=== PATIENT | female | born 1945 | race Caucasian/White ===

== ENCOUNTER 2018-11-10 08:48 | Emergency (ER) | payer MEDICARE, OTHER ==
[~2018-11-10] VITALS: Ht 152.4 cm; Wt 80.0 kg
[~2018-11-10 08:48] MED LIST: ANTIVERT PO; LISINOPRIL10 MG PO; MEDDOSEPAK PO; ONDANSETRON4 MG PO
[2018-11-10] MEDS ORDERED: LISINOPRIL40 MG PO (09:54)
[2018-11-10] MEDS ORDERED: CARTIA XT120 MG PO (09:55)
[2018-11-10] MEDS ORDERED: PERMETHRIN5 % EX (10:30)
[2018-11-10] MEDS ORDERED: ALAVERT10 M1 PO (10:30)
[2018-11-10 10:44] VITALS: BP 144/79
== END 2018-11-10 10:44 | disposition home or self-care (01) ==
LOC: ED 08:48
DX: L29.9 Pruritus, unspecified (principal); R21 Rash and other nonspecific skin eruption

== ENCOUNTER 2019-09-24 14:06 | Observation (INO) | payer MEDICARE, OTHER ==
[~2019-09-24] VITALS: Ht 152.4 cm; Wt 65.8 kg
[~2019-09-24 14:06] MED LIST changes: +ALAVERT10 M1 PO; +CARTIA XT120 MG PO; +LISINOPRIL40 MG PO; +PERMETHRIN5 % EX
--- NOTE | 2019-09-24 14:06 | NUR ---
PT TO ROOM VIA WHEELCHAIR IN STABLE CONDITION FOR BEDSIDE TRIAGE.
[2019-09-24] MEDS ORDERED: DILTIAZEM30 MG PO (14:28)
[2019-09-24 14:38] LABS: HEMATOCRIT 39.3 % (37.0-47.0); HEMOGLOBIN 12.4 g/dl (12.0-16.0); IMMATURE GRANULOCYTES 0.6 % (0.0-5.0); MEAN CELL VOLUME 98.7 fL CALC (80.0-100.0); MEAN CORPUSCULAR HGB 31.2 pG CALC (26.0-32.0); MEAN CORPUSCULAR HGB CONC 31.6 g/L CALC (32.0-36.0); NEUT# 9.57 thou/uL (2.00-7.15); RED BLOOD COUNT 3.98 mill/uL (4.20-5.60)
[2019-09-24 14:54] LABS: BUN 24 mg/dL (8-23); BUN/CREATININE RATIO 31 (12-20 (CALC)); CHLORIDE 101 mmol/l (95-108); CREATININE 0.8 mg/dL (0.5-1.0); GFR > 60 ML/MIN (>=60 (CALC)); GFR FOR AFR.AMER. > 60 ML/MIN (>=60 (CALC)); POTASSIUM 4.9 mmol/l (3.5-5.1); SODIUM 135 mmol/l (137-146)
[2019-09-24 14:55] LABS: ANION GAP 14 (6-22 (CALC)); CARBON DIOXIDE 25 mmol/l (22-30)
--- NOTE | 2019-09-24 15:00 | NUR ---
PT PRESENTS WITH CHEST PAIN OF 0/10. PT STATES HAVING CHEST PAIN BEFORE COMING INTO ER PAIN OF 9/10. PT STATES IT IS LOCATED IN THE LEFT SIDE OF CHEST AND RADIATES TO LEFT SHOULDER. PT ALSO HAS EPIGASTRIC TENDERNESS. THESE SYMPTOMS STARTED FOUR DAYS PRIOR. CAP REFILL BRISK, PULSES EQUAL, SKIN PINK. WILL CONTINUE TO MONITOR. LUNGS CLEAR BI
--- NOTE | 2019-09-24 16:07 | NUR ---
PT RESTING IN STRETCHER ANSWERING QUESTIONS APPROPRIATLY. PT STATES CONTINUED 0/10 PAIN. WILL CONTINUE TO MONITOR ASPIRIN ADMINISTERED.
--- NOTE | 2019-09-24 16:35 | NUR ---
ELIESER BARAKAT TO [facility]
--- NOTE | 2019-09-24 16:40 | NUR ---
PT TRANSPORTED TO MED SURG VIA STRETCHER. CARE ASSUMED TO LIN[facility] PT IN NO DISTRESS AND IN STABLE CONDITION
--- NOTE | 2019-09-24 16:45 | NUR ---
PT ARRIVED FROM ER VIA STRETCHER ACCOMPANIED BY STAFF. IV SITE IS FREE FROM REDNESS OR EDEMA. TELE MONITOR IN PLACE.
[2019-09-24 16:57] VITALS: BP 150/72
--- NOTE | 2019-09-24 17:00 | NUR ---
PT ASSESSMENT IS COMPLETED: PT ABLE TO AMBULATE TO THE BED FROM THE STRETCHER IV SITE IS FREE FROM REDNESS OR EDEMA TELE MONITOR IN PLACE. HR IS REG,PULSES ARE STRONG X4, ABD IS SOFT WITH ACTIVE BS.BREATH SOUNDS ARE CLEAR,BILATERALLY. PT HAS TO SELF CATH 3 TO 4 TIMES A DAY,DUE TO INABLILTY TO EMPTY HER BLADDER.
[2019-09-24 18:20] VITALS: BP 131/68
--- NOTE | 2019-09-24 19:40 | NUR ---
REPORT REC. PT SITTING IN BED. NO DISTRESS NOTED AT THIS TIME.
--- NOTE | 2019-09-24 20:46 | NUR ---
PT SITTING IN BED WATCHING TV. A&O X3. NO DISTRESS NOTED. PT STATES THAT SHE CURRENTLY IS NOT EXPERIENCING ANY CHEST PAIN. PT VOICED CONCERN IN REGARDS TO HER MEDICATION THAT SHE TAKES AT HOME, EXPLAINED TO THE PT THAT IT WOULD BE GIVEN TO HER IN THE MORNING. PT VERBALIZED UNDERSTANDING. NO OTHER NEEDS AT THIS TIME. DISCUSSED POC. ASSESSMENT COMPLETED. CALL LIGHT IN REACH CONTINUE TO MONITOR.
--- NOTE | 2019-09-24 21:20 | NUR ---
PT VERBALIZED NEED OF SLEEPING PILL TO HELP HER SLEEP. SONATA GIVEN TO PT. CONTINUE TO MONITOR.
--- NOTE | 2019-09-25 | NUR ---
PT SLEEPING IN BED. NO DISTRESS NOTED. BREATHING EVEN AND UNLABORED. CONTINUE TO MONITOR.
[2019-09-25 03:45] VITALS: BP 148/86
[2019-09-25 06:24] LABS: CHOLESTEROL HDL RATIO 2.8 (<4.4 (CALC)); MAGNESIUM 1.9 mg/dL (1.6-2.3)
[2019-09-25 07:34] LABS: URINE BILIRUBIN - DIPSTICK NEGATIVE (NEGATIVE); URINE BLOOD DIPSTICK SMALL (NEGATIVE); URINE CLARITY CLOUDY; URINE COLOR YELLOW; URINE GLUCOSE - DIPSTICK NEGATIVE (NEGATIVE); URINE KETONE NEGATIVE (NEGATIVE); URINE LEUK ESTERASE NEGATIVE (Negative); URINE NITRITE - DIPSTICK NEGATIVE (Negative); URINE PROTEIN - DIPSTICK NEGATIVE (NEG-TRACE); URINE UROBILINOGEN - DIPSTICK 0.2 E.U./dL (0.2)
[2019-09-25 07:48] LABS: URINE BACTERIA MANY hpf
[2019-09-25 08:15] VITALS: BP 140/81
--- NOTE | 2019-09-25 08:15 | NUR ---
ASSESSMENT IS COMPLETED: IV SITE IS FREE FROM REDNESS OR EDEMA. HR IS REG,PULSES ARE STRONG X4, ABD IS SOFT WITH ACTIVE BS. BREATH SOUNDS ARE CLEAR, BILATERALLY, CONTINUE TO OSBERVE AND MONITOR. TELE MONITOR IN PLACE. CONTINUE TO OBSERVE AND MONITOR.
[2019-09-25] MEDS ORDERED: PROTONIX40 M2 PO (10:59)
[2019-09-25 11:03] VITALS: BP 139/73
[2019-09-25] MEDS ORDERED: BACTRIM DS1 TAB PO (11:06)
--- NOTE | 2019-09-25 12:20 | NUR ---
PT IS RELAXING IN BED FAMILY IN THE ROOM. IV SITE IS FREE FROM REDNESS OR EDEMA.
--- NOTE | 2019-09-25 13:35 | NUR ---
DISCHARGE INSTRUCTIONS GIVEN AND VERBALIZED UNDERSTANDING. IV SITE DISCONTINUED CATHETER INTACT. FAMILY IN THE ROOM. Discharge instructions given. Patient verbalizes understanding of same. Discharged in stable condition via AMBULATE to Home with family. All belongings sent with pt.
--- NOTE | 2019-09-27 14:31 | NUR ---
REVIEW OF URINE CULTURE SHOWS ISOLATE IS RESISTANT TO BACTRIM, WE WILL CHANGE RX TO KEFLEX 500MG BID X 7 DAYS. NEW RX CALLED TO [facility] AT 09/27/19 PT DID NOT ANSWER PHONE.
== END 2019-09-25 13:35 | disposition home or self-care (01) ==
LOC: ED 14:06 → ED-I 15:14 → ED 15:31 → MS2 15:32
PROVIDERS: Family Medicine; ADMIT Internal Medicine; ATTEND Internal Medicine
DX: R07.9 Chest pain, unspecified (principal); I10 Essential (primary) hypertension; K21.9 Gastro-esophageal reflux disease without esophagitis; N31.8 Other neuromuscular dysfunction of bladder; N39.490 Overflow incontinence
CPT/HCPCS: G0378

== ENCOUNTER 2021-08-31 06:49 | Day surgery (SDC) | payer MEDICARE, OTHER ==
[~2021-08-31] VITALS: Ht 149.9 cm; Wt 65.8 kg
[~2021-08-31 06:49] MED LIST changes: +B12; +BACTRIM DS1 TAB PO; +CALCIUM; +D3; +DILTIAZEM30 MG PO; +FISH OIL; +OMEGA-3 FISH1000 MG PO; +OMEPRAZOLE10 MG PO; +OS-CAL 500500 M1 PO; +PROBIOTIC; +PROBIOTIC1 TAB PO; +PROLIA60 MG/ML SC; +PROTONIX40 M2 PO; +TUMERIC; +TURMERIC CURCU500 MG PO; +VITAMIN B-12500 MCG PO; +VITAMIN D35000 UNI1 PO
[2021-08-31] MEDS ORDERED: PREVACID30 M3 PO (09:46)
[2021-08-31 10:23] VITALS: BP 147/67
== END 2021-08-31 10:20 | disposition home or self-care (01) ==
LOC: ENDO 06:49 → ORM 08:30 → ENDO 09:10 → ORM 09:30 → ENDO 10:20
PROVIDERS: ATTEND Surgery
PROC: 0DBN8ZX Excision of Sigmoid Colon, Via Natural or Artificial Opening Endoscopic, Diagnostic (ICD-10-PCS; principal; 2021-08-31)
PROC: 0DBL8ZX Excision of Transverse Colon, Via Natural or Artificial Opening Endoscopic, Diagnostic (ICD-10-PCS; 2021-08-31)
PROC: 0DJ08ZZ Inspection of Upper Intestinal Tract, Via Natural or Artificial Opening Endoscopic (ICD-10-PCS; 2021-08-31)
DX: Z12.11 Encounter for screening for malignant neoplasm of colon (principal); D12.3 Benign neoplasm of transverse colon; D12.5 Benign neoplasm of sigmoid colon; K57.30 Diverticulosis of large intestine without perforation or abscess without bleeding; K28.9 Gastrojejunal ulcer, unspecified as acute or chronic, without hemorrhage or perforation; K44.9 Diaphragmatic hernia without obstruction or gangrene; K21.9 Gastro-esophageal reflux disease without esophagitis; I10 Essential (primary) hypertension; Z86.010 Personal history of colon polyps; Z98.84 Bariatric surgery status; Z79.899 Other long term (current) drug therapy

== ENCOUNTER 2021-10-02 07:14 | Day surgery (SDC) | payer MEDICARE, OTHER ==
[~2021-10-02] VITALS: Ht 149.9 cm; Wt 65.8 kg
[~2021-10-02 07:14] MED LIST changes: +PREVACID30 M3 PO
[2021-10-02] MEDS ORDERED: PROTONIX40 MG PO (07:28)
[2021-10-02 10:29] VITALS: BP 135/60
== END 2021-10-02 10:20 | disposition home or self-care (01) ==
LOC: ENDO 07:14 → ORM 08:45 → ENDO 10:20
PROVIDERS: ATTEND Surgery
PROC: 0DJ08ZZ Inspection of Upper Intestinal Tract, Via Natural or Artificial Opening Endoscopic (ICD-10-PCS; principal; 2021-10-02)
DX: K28.9 Gastrojejunal ulcer, unspecified as acute or chronic, without hemorrhage or perforation (principal); K44.9 Diaphragmatic hernia without obstruction or gangrene; I10 Essential (primary) hypertension; Z98.84 Bariatric surgery status

== ENCOUNTER 2024-03-20 08:48 | Emergency (ER) | payer MEDICARE, OTHER ==
[~2024-03-20] VITALS: Ht 149.9 cm; Wt 62.6 kg
[~2024-03-20 08:48] MED LIST changes: +OMEPRAZOLE20 MG PO; +PROTONIX40 MG PO
[2024-03-20 08:54] VITALS: BP 146/87
[2024-03-20 09:00] VITALS: BP 147/74
[2024-03-20] MEDS ORDERED: PREDNISONE50 MG PO (09:44)
[2024-03-20] MEDS ORDERED: CEPHALEXIN500 M1 PO (09:44)
[2024-03-20 10:06] VITALS: BP 146/87
== END 2024-03-20 10:07 | disposition home or self-care (01) ==
LOC: ED 08:48
DX: S00.461A Insect bite (nonvenomous) of right ear, initial encounter (principal); H60.11 Cellulitis of right external ear; I10 Essential (primary) hypertension; W57.XXXA Bitten or stung by nonvenomous insect and other nonvenomous arthropods, initial encounter

== ENCOUNTER 2024-05-10 17:43 | Emergency (ER) | payer MEDICARE, OTHER ==
[~2024-05-10] VITALS: Ht 149.9 cm; Wt 58.9 kg
[~2024-05-10 17:43] MED LIST changes: +CEPHALEXIN500 M1 PO; +PREDNISONE50 MG PO
[2024-05-10] MEDS ORDERED: HYDROcodone 5 MG/Acetaminophen 325 MG/COMBO PO ONE (18:00)
[2024-05-10] MEDS ORDERED: ERYTHROMYCIN OPTHALMIC 5 MG/GM TUBE OS ONE (18:00)
[2024-05-10] MEDS ORDERED: VIBRAMYCIN100 M2 PO (18:11)
[2024-05-10] MEDS ORDERED: ERYTHROMYCIN O3.5 GM OS (18:11)
[2024-05-10] MEDS ORDERED: ACYCLOVIR800 MG PO (18:11)
[2024-05-10] MEDS ORDERED: LORTAB5 PO (18:11)
[2024-05-10 18:28] VITALS: BP 145/69
== END 2024-05-10 18:30 | disposition home or self-care (01) ==
LOC: ED 17:43
PROC: 089 Eye, Drainage (ICD-10-PCS; principal; 2024-05-10)
DX: H00.014 Hordeolum externum left upper eyelid (principal); I10 Essential (primary) hypertension